=== PATIENT | male | born 1955 | race Caucasian/White ===

== ENCOUNTER 2021-05-17 08:50 | Outpatient (CLI) | payer OTHER | END 2021-05-17 19:15 | disposition home or self-care (01) | LOC: CT 08:50 | PROVIDERS: ATTEND Internal Medicine | DX: Z90.5 Acquired absence of kidney (principal); Z08 Encounter for follow-up examination after completed treatment for malignant neoplasm; Z85.53 Personal history of malignant neoplasm of renal pelvis; J30.1 Allergic rhinitis due to pollen; M54.2 Cervicalgia; R31.9 Hematuria, unspecified; Z87.891 Personal history of nicotine dependence; Z09 Encounter for follow-up examination after completed treatment for conditions other than malignant neoplasm | CPT/HCPCS: 36415; 82565; 84520; Q9963 ==